=== PATIENT | female | born 1955 | race African-American/Black ===

== ENCOUNTER 2018-12-03 16:47 | Inpatient (IN) | payer BC ==
[~2018-12-03] VITALS: Ht 157.5 cm; Wt 82.1 kg
--- NOTE | ~2018-12-03 | HC ---
[facility] [place] [address] CONSULTATION Name: HARJEET HENSON Room #: 355-P ADM IN M.R.#: [id number] Admission: 12/03/18 Attend Phys: Shelton Martin MD Discharge: Date of : 53 Report #: [id number] THIS REPORT FOR: //name// CC: Shelton Martin [facility] unknown Time 2:21 p.m. HISTORY OF PRESENT ILLNESS: The patient is a 63-year-old -[place] woman who was admitted to the hospital with stroke-like findings. The patient has a history of diabetes and hypertension. She has not been taking her medications. She noted when she went to work yesterday some slurred speech as well as weakness in her right arm and right leg. She herself believes that the weakness of the right leg began on Tuesday. The patient had a blood pressure of 214/101 in the Emergency Room and her blood sugar was over 400. An initial CAT scan of the head was negative. The patient was admitted. PAST MEDICAL HISTORY: Positive for hypertension and diabetes. The patient has had decreased vision in her left eye. She has had Lasik eye surgery. MEDICATIONS: Her prescribed medications were metformin, hydrochlorothiazide and lisinopril. She was not taking any of these. ALLERGIES: No allergies known. FAMILY HISTORY: Positive for stroke in her mother. She does not know about her father. SOCIAL HISTORY: She does not smoke. 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 She does not use drugs or alcohol. She is under a lot of stress at home with an extended family. REVIEW OF SYSTEMS: Negative for systemic complaints of fever, night sweats, chills, rashes or lymphadenopathy. She denied chest pain or shortness of breath, cough, nausea or vomiting. She did have urinary urgency in the day or two before she came to the Emergency Room. PHYSICAL EXAMINATION: VITAL SIGNS: Initial blood pressure in the Emergency Room was 214/101. Blood pressure at this time is 188/102, pulse 66, temperature 36.4. GENERAL: The patient is a well-developed, well-nourished patient, in no apparent distress, who is pleasant and cooperative. NECK: Supple. EXTREMITIES: There is no pedal edema. NEUROLOGIC: She is alert and oriented. Speech is slightly slurred, but easily understandable. She is oriented with normal memory. On cranial nerve testing, the acuity in the left eye is decreased. Pupils are equally round and reactive. [facility] [address] [place] [address] CONSULTATION Name: HARJEET HENSON Room #: 355-P [facility] IN .R.#: [id number] Admission: 12/03/18 Attend Phys: Shelton Martin MD Discharge: Date of : 53 Report #: [id number] Extraocular movements are full. Facial sensation shows a slightly decreased appreciation to pin on the right face. There is mild weakness of the right mouth. Eyelid closure is slightly weaker on the right. Tongue is normal. Motor testing reveals full power in her arms and legs. Sensation testing revealed diminished appreciation to pin on the right in the arm and leg. Vibration was decreased bilaterally. Coordination testing was done well with [id number]. Reflexes were absent throughout. Toes were downgoing. Gait was mildly ataxic. The patient could heel walk and toe walk well; however, she did have some weaving with her eyes closed and her feet together. MRI scan of the brain showed an acute infarct in the left caroline. The MRI shows multiple areas of gradient echo appearance suggesting the presence of hemosiderin from previous small hemorrhages suggestive of amyloid angiopathy. MRA showed evidence of stenosis on the right with involvement of the anterior cerebral artery and the middle cerebral artery. In the neck, no hemodynamically significant stenosis was noted. ASSESSMENT AND PLAN: Diabetic, hypertensive woman with changes in the brain consistent with intracerebral occlusive disease and evidence of previous multiple tiny hemorrhages, now with the appearance of a left pontine infarct. She is currently on atorvastatin and aspirin. She is on lisinopril and hydrochlorothiazide. She is being covered with an insulin drip. By: 1432 [id number] Bishop Naranjo MD /nt
--- NOTE | ~2018-12-03 | HC ---
[facility] [place] [address] CONSULTATION Name: HARJEET HENSON Room #: 355-P ADM IN M.R.#: [id number] Admission: 12/03/18 Attend Phys: Shelton Martin MD Discharge: Date of : 53 Report #: [id number] THIS REPORT FOR: //name// CC: Shelton Martin [facility] unknown DATE OF SERVICE: 12/04/2018 HISTORY OF PRESENT ILLNESS: The patient is a 63-year-old -Micronesian female with history of diabetes mellitus, hypertension, admitted with lower extremity weakness, slurred speech. She has some right lower extremity ataxia. She was significantly hypertensive, blood pressure 214/101. She feels that she is overall doing better currently. MRI does reveal a left paramidline region of the caroline acute infarct. Denies any specific problems with swallowing. She noted right leg drag and weakness, which she thinks has improved, but not back to normal. We are seeing her in Rehabilitation Medicine consultation. PAST MEDICAL HISTORY: As noted above. She has history of diabetes mellitus and hypertension. She has had prior and LASIK surgery. MEDICATIONS: Please see the full medication listing. She apparently had ran out of her blood pressure and diabetes medications. ALLERGIES: No known drug allergies. FAMILY HISTORY: Her mother had had a stroke. SOCIAL HISTORY: She lives in a house alone several steps in with several floors, but she notes the steps to have railings on them. There is a friend that is visiting and notes the patient could stay with a friend in her house if need be. REVIEW OF SYSTEMS: Did not offer any current complaints of chest pain, shortness of breath or abdominal discomfort. PHYSICAL EXAMINATION: GENERAL: A 63-year-old -Micronesian female, in no obvious distress. She is alert, pleasant. VITAL SIGNS: Last recorded temperature 97.5, pulse 66, respirations 20, blood pressure 188/102. HEENT: Appeared to be benign. No obvious visual field neglect to confrontation. NEUROLOGIC: She was able to follow basic commands without difficulty. EXTREMITIES: Functional range of motion of both upper extremities. Strength is at least a grade 4 to 4-/5. DTRs are trace to 1. Lower extremities, no focal calf swelling, functional range of motion, strength is a grade 4 to 4-/5. DTRs [address] [address] CONSULTATION Name: HARJEET HENSON Room #: 355-P [facility] IN M.R.#: [id number] Admission: 12/03/18 Attend Phys: Shelton Martin MD Discharge: Date of : 53 Report #: [id number] are trace to 1. No obvious sensory neglect and sensation appeared to be intact to simultaneous stimulation. ASSESSMENT: A 63-year-old -Micronesian female with the following problem list: 1. Left paramidline pontine acute infarct. 2. Right lower extremity ataxia. 3. Initial dysarthria. 4. Functional mobility and activities of daily living and communication concerns. 5. Diabetes mellitus. 6. Hypertension. PLAN: Therapy evaluations are underway. We will be glad to follow along with you regarding rehab therapy needs. By: 1205 0112 Mauricio Guzman MD /PMT
[~2018-12-03 16:47] MED LIST: GLUCOPHAGE500 MG PO; HYDROCHLOROTH12.5 MG PO; LISINOPRIL2.5 MG PO; NORCO 5-325 TA1 EACH PO; [UNRECOGNIZED DRUG - REMARK] OPHTHALMIC
--- NOTE | 2018-12-03 16:47 | NUR ---
PT TO ED #12, REPORT TO KHADIJAH AND DR YOUNG AT BEDSIDE
[2018-12-03 17:03] VITALS: BP 214/101
[2018-12-03 17:04] LABS: HEMOGLOBIN 12.9 gm/dL (12.0-15.0); MCH 27.6 pg (26.0-34.0); MCHC 32.9 g/dL (28.0-37.0); MCV 83.9 fL (80.0-100.0); RBC 4.65 mil/uL (4.20-5.00); RDW 14.2 % (10.5-14.5); WBC 6.5 thou/uL (4.0-11.0)
[2018-12-03 17:12] LABS: ANION GAP 6 mmol/L (7-16); BUN 23 mg/dL (7-18); CALCIUM 9.4 mg/dL (8.5-10.1); CHLORIDE 97 mmol/L (98-107); CO2 32 mmol/L (21-32); CREATININE 1.3 mg/dL (0.6-1.0); GLUCOSE 448 mg/dL (74-106); POTASSIUM 3.4 mmol/L (3.5-5.1); SODIUM 135 mmol/L (136-145)
[2018-12-03 17:19] LABS: APTT 25.2 Seconds (24.5-32.8); PROTIME 10.2 Seconds (9.3-11.4)
[2018-12-03 17:20] LABS: TROPONIN-I <0.06 ng/mL (<0.06)
--- NOTE | 2018-12-03 17:34 | NUR ---
PT HAD TAKEN 324MG OF ASPIRIN PRIOR TO ARIVAL
[2018-12-03 18:07] VITALS: BP 177/88
[2018-12-03 18:45] VITALS: BP 226/111
[2018-12-03 19:10] VITALS: BP 212/114
--- NOTE | 2018-12-03 19:15 | NUR ---
report received from assembler musical instruments Nicolás @ 0997. pt being seen by dr. neil in er at this time. pt recieved to floor @ 1900 via stretcher w/ pt's sister at her side. pt aox4. vs taken. pt settled into room 355. Nicolás rn stated he got a 4 on the NIH assessment. Nicolás doss also states that the pt "ran out of her blood pressure and diabetic medication several months ago".
--- NOTE | 2018-12-03 21:48 | NUR ---
ADMISSION NOTE: ARRIVED AT SHIFT CHANGE 1900. PT ALERT AND ORIENTED X4. INSTRUCTED TO CALL FOR ASSIST OUT OF BED. DENIES PAIN. BLOOD PRESSURE ELEVATED, DENIES HEADACHE. SPEECH IS CLEAR AT THIS TIME. ORIENTED TO ROOM AND SURROUNDINGS.
[2018-12-03 22:09] VITALS: BP 193/107
--- NOTE | 2018-12-04 02:11 | NUR ---
stress incontinence this am. she is awake and washing out her pants. denies pain. nih continues to be a 2. no concerns voiced. awaiting neurology consult this am.
[2018-12-04 05:20] VITALS: BP 230/105
[2018-12-04 05:25] LABS: HEMATOCRIT 36.5 % (37.0-47.0); HEMOGLOBIN 11.7 gm/dL (12.0-15.0); MCHC 31.9 g/dL (28.0-37.0); MCV 84.6 fL (80.0-100.0); RBC 4.32 mil/uL (4.20-5.00); RDW 14.5 % (10.5-14.5); WBC 5.3 thou/uL (4.0-11.0)
[2018-12-04 05:32] LABS: URINE CREATININE-RANDOM* 50.9 mg/dL
[2018-12-04 05:37] LABS: URINE BILIRUBIN NEGATIVE (Negative); URINE BLOOD NEGATIVE (Negative); URINE CLARITY CLEAR; URINE COLOR YELLOW; URINE GLUCOSE-RANDOM* 3+ (Negative); URINE KETONES NEGATIVE (Negative); URINE LEUKOCYTES NEGATIVE (Negative); URINE NITRITE NEGATIVE (Negative); URINE PROTEIN (DIPSTICK) TRACE (Negative); URINE SPECIFIC GRAVITY 1.015 (1.005-1.035); URINE UROBILINOGEN 0.2 E.U./dl (0.2-1.0)
[2018-12-04 05:43] LABS: ALBUMIN 2.9 g/dL (3.4-5.0); ANION GAP 9 mmol/L (7-16); BUN 20 mg/dL (7-18); CALCIUM 9.5 mg/dL (8.5-10.1); CHLORIDE 103 mmol/L (98-107); CHOLESTEROL 203 mg/dL (<200); CO2 30 mmol/L (21-32); CREATININE 0.9 mg/dL (0.6-1.0); GLUCOSE 240 mg/dL (74-106); HDL CHOLESTEROL 51 mg/dL (>40); LDL CHOLESTEROL 137 mg/dL (<100); POTASSIUM 3.3 mmol/L (3.5-5.1); SGOT 17 U/L (15-37); SGPT 23 U/L (30-65); SODIUM 142 mmol/L (136-145); TOTAL BILIRUBIN 0.4 mg/dL (<0.1-1.0); TOTAL PROTEIN 7.1 g/dL (6.4-8.2); TRIGLYCERIDE 75 mg/dL (<150); VLDL 15 mg/dL (<40)
[2018-12-04 05:45] LABS: SERUM ASSESSMENT Clear
[2018-12-04 08:07] VITALS: BP 199/105
--- NOTE | 2018-12-04 08:50 | EKG ---
[place] [address] [facility] [place] [address] ELECTROCARDIOGRAM REPORT Name: HARJEET HENSON Room #: 355-P ADM IN M.R.#: [id number] Admission: 12/03/18 Attend Phys: Shelton Martin MD Discharge: Date of : 53 Report #: [id number] THIS REPORT FOR: //name// [facility] ED Test Date: 2018-12-03 Test Time: 17:23:10 Pat Name: HARJEET HENSON Department: Room: [facility] Gender: F Product Support Rep: : 1955 Requested By: Hernandez Daugherty Order Number: [id number] MD: Efrain Guallpa Measurements Intervals [place] Rate: 75 P: 10 CO: 168 QRS: -28 QRSD: 98 T: 80 QT: 404 QTc: 452 Interpretive Statements Sinus rhythm Nonspecific T wave abnormality LVH with secondary repolarization abnormality No previous ECG available for comparison Electronically Signed On 12-04-2018 8:50:41 KETTLE SKIMMER by Efrain Guallpa [email or web address] <ELECTRONICALLY SIGNED> By: Efrain Guallpa MD, [facility] 12/04/18 0850 22 22 Efrain Guallpa MD, FAC /EPI
[2018-12-04 11:27] VITALS: BP 188/102
[2018-12-04 16:51] VITALS: BP 215/106
[2018-12-04 19:05] VITALS: BP 172/91
--- NOTE | 2018-12-04 19:50 | NUR ---
care of pt assumed this am @ ~0700. pt noted to be getting up on her own and under the impression she can be up ad wild. pt informed of the need for her to be up w/ x1 sba when [facility], in room or hallways and the need to have a chair and bed alarms on when in those places. pt has been non-compliant with our request for her to call us when up, but has been found setting of the bed alarm as she is going to the bthr to void and not calling and/or waiting on staff to assist. pt has denies co chest pain, no soa and no n/v/d. pt w/ a good appetite for food and fluids today. pt visited by her female friend late this am. pt had mri & mra this am. pt looking forward to a good restful sleep tonight.
[2018-12-05] VITALS (9 sets, daily range): BP systolic 115–184; BP diastolic 57–110
[2018-12-05 02:10] LABS: ESTIMATED AVERAGE GLUCOSE > 398 mg/dL (()); GLYCOHEMOGLOBIN (HGB A1C) > 15.5 % (4.8-5.6)
--- NOTE | 2018-12-05 04:03 | NUR ---
No change in neuro assessment. Speech slightly slurred but understandable. No weakness noted. C/o shoulder soreness due to shot received yesterday ( flu shot and insulin shot per pt.). ELECTROENCEPHALOGRAPH TECHNOLOGIST notified and order received. Tylenol given with some relief. Pt. slept fair during the night. No other concerns voiced at this time. Will continue to monitor.
--- NOTE | 2018-12-05 10:04 | 2DMMODE ---
[facility] [address] [place] [address] 2 D/M-MODE ECHOCARDIOGRAM Name: HARJEET HENSON Room #: 355-P ADM IN M.R.#: [id number] Admission: 12/03/18 Attend Phys: Shelton Martin, Discharge: Date of : 53 Date of Service: 12/05/18 1004 Report #: [id number] THIS REPORT FOR: //name// APPROVED REPORT Study performed: 12/05/2018 08:12:20 EXAM: Comprehensive 2D, Doppler, and color-flow Echocardiogram Patient Location: Echo lab Status: routine BSA: 1.83 HR: 59 bpm BP: 171/89 mmHg Rhythm: NSR Other Information Study Quality: Good Indications CVA/TIA Diabetes Bradycardia Hypertension/HDD 2D Dimensions RVDd: 27.86 mm IVSd: 16.74 (7-11mm) LVOT Diam: 20.68 (18-24mm) LVDd: 16.74 mm PWd: 15.66 (7-11mm) Ascending Ao: 37.40 (22-36mm) LVDs: 38.33 (25-40mm) Aortic Root: 35.87 mm Volumes Left Atrial Volume (Systole) Single Plane 4CH: 63.93 mL Single Plane 2CH: 56.46 mL LA ESV Index: 36.12 mL/m2 Aortic Valve AoV Peak Rashad.: 1.50 m/s AO Peak Gr.: 8.99 mmHg LVOT Max P.84 mmHg LVOT Max V: 1.21 m/s MARE Vmax: 2.71 cm2 Mitral Valve E/A Ratio: 0.4 [facility] [address] [place] [address] 2 D/M-MODE ECHOCARDIOGRAM Name: HARJEET HENSON Room #: 355-P [facility] IN [facility]#: [id number] Admission: 12/03/18 Attend Phys: Shelton Martin, Discharge: Date of : 53 Date of Service: 12/05/18 1004 Report #: [id number] MV Decel. Time: 278.43 ms MV E Max Rashad.: 0.43 m/s MV A Rashad.: 1.22 m/s MV PHT: 80.74 ms IVRT: 203.00 ms Pulmonary Valve PV Peak Rashad.: 0.98 m/s PV Peak Gr.: 3.89 mmHg Tricuspid Valve RAP Estimate: 5.00 mmHg Left Ventricle The left ventricle is normal size. Mild concentric left ventricular hypertrophy. Left ventricular systolic function is mildly decreased. Hypokinesis inferoseptum and base of inferior vasquez LVEF is 45%. Mild diastolic dysfunction is present (impaired relaxation pattern). Right Ventricle The right ventricle is normal size. The right ventricular systolic function is normal. Atria Left atrium is mildly dilated. No shunting by contrast bubble injection. The right atrium size is normal. Aortic Valve Aortic valve is calcified. No aortic regurgitation is present. There is no aortic valvular stenosis. Mitral Valve The mitral valve is normal in structure. Trace to mild mitral regurgitation. No evidence of mitral valve stenosis. Tricuspid Valve The tricuspid valve is normal in structure. Trace tricuspid regurgitation. Unable to assess PA pressure. Pulmonic Valve [facility] [address] [place] [address] 2 D/M-MODE ECHOCARDIOGRAM Name: HARJEET HENSON Room #: 355-P [facility] IN M.R.#: [id number] Admission: 12/03/18 Attend Phys: Shelton Martin, Discharge: Date of : 53 Date of Service: 12/05/18 1004 Report #: [id number] The pulmonary valve is normal in structure. Mild pulmonic regurgitation. Great Vessels The aortic root is normal in size. The ascending aorta is borderline dilated at 3.7 cm. IVC is normal in size and collapses >50% with inspiration. Pericardium There is no pericardial effusion. <Conclusion> Left ventricular systolic function is mildly decreased. Hypokinesis inferoseptum and base of inferior vasquez LVEF is 45%. Mild LVH Mild diastolic dysfunction is present (impaired relaxation pattern). No shunting by contrast bubble injection. Left atrium is mildly dilated. Aortic valve is calcified. No aortic regurgitation or insufficiency. The mitral valve is normal in structure. Trace to mild mitral regurgitation Pulmonary artery pressure could not be reliably ascertained. There is no pericardial effusion. <ELECTRONICALLY SIGNED> By: Efrain Guallpa MD, FACC 12/05/18 1004 100 100 Efrain Guallpa MD, FAC /INF
--- NOTE | 2018-12-05 10:21 | NUR ---
ASSESSMENT: CM REVIEWED CHART AND MET WITH PATIENT AT THE BEDSIDE. PT IS ALERT AND ORIENTED X4. PT REPORTS SHE LIVES IN A HOUSE ALONE BUT STATES HER NEICE IS TEMPORARILY LIVING WITH HER. PT REPORTS SHE CAN ENTER HER HOME THROUGH THE FRONT DOOR WHERE THERE IS A COUPLE OF STEPS OR REPORTS SHE CAN ENTER THROUGHT THE GARAGE AND GO UP 4-5 STEPS WITH HANDRAILS TO THE MAIN LEVEL AND ANOTHER 4-5 STEPS WITH HANDRAILS TO THE LEVEL WITH BEDROOMS. PT REPORTS SHE AMBULATES INDEPENDENTLY AND IS INDEPENDENT WITH ADLS. PT REPORTS SHE HAS NOT HAD HH IN THE PAST NOR BEEN TO REHAB/SNF. CM DISCUSSED ROLE. 5N IS FOLLOWING PATIENT. PATIENT STATING SHE IS HOPING SHE IS ABLE TO RETURN TO HER HOME WITH HH IF NEEDED. PATIENT HAS NO PREFERENCE OF HH. REFERRAL SENT TO [facility]. CM WILL CONTINUE TO FOLLOW TO ASSIST NEEDED.
--- NOTE | 2018-12-05 15:29 | NUR ---
Assumed care of patient at 0700. Blood pressures elevated this shift. BP meds being adjusted by both Dr. Clements and Dr. Guallpa. Otherwise, VSS. Patient alert and oriented x4, very pleasant. NIH q 4 hours - score of 3 due to right sided facial droop, slurred speech and very slight drift to right arm. Good, equal store grocery merchandiser strengths. Patient does not feel that right side is weaker than left, but it feels "stiff" and not as coordinated. Patient seems very motivated about completing therapies and doing things herself to increase her strength. Up with SBA and gait belt - right knee becky at times when walking. Fall precautions in place but patient does not always wait to get up until staff arrives. Continue to encourage patient to call and use fall precautions. Looking into 5N rehab stay for patient. Had Echo today; abnormal results so cardiology consult. Family at bedside this afternoon. Patient with some questions regarding FMLA paperwork and when she will be able to return to work, what her restrictions will be. Encouraged to speak with Dr. Clements and neurologist. Progressing towards POC. Will continue to monitor.
--- NOTE | 2018-12-05 19:36 | NUR ---
Around 1809, patient called out to use the restroom. Taken to bathroom by SALESPERSON BURIAL NEEDS on unit. Patient told to call out when done and staff will walk back with patient. About 10-15 minutes later, SALESPERSON BURIAL NEEDS asked this RN to go check on patient, since she hadn't called. Patient was found in the bed, at the end of the bed, curled up on side, talking on the phone. Asked patient if she wanted to get repositioned, since she appeared uncomfortable. Patient states yes, hung up phone and stated that "whatever medicine you gave me is working because I feel good. I feel like I'm floating right now. I kind of feel like I'm high ." Noted that speech sounds more slurred / slower than during the day. When patient repositioning in bed, she appears to be moving slower than her baseline and also appears "floppy" when moving. Patient does state that she feels she can use her right hand better currently. Vitals taken at this time - BP remains high. Otherwise, stable. Blood sugar taken - 138. Dr Clements paged to notify of change. No immediate callback, so Code Stroke called. NIH completed and charted - score of 4. No other new changes or symptoms besides the speech and patient feeling different. No new right sided weakness or left sided weakness. Continues with equal pharmacy data analyst strengths. Oriented x4. Still with slight right facial droop, maybe more prominent slurred speech. Another page to Dr. Clements and with call back. Updated on patient status and symptoms. To call neurology. At this point, patient states she feels back to baseline. Is acting more like baseline - does not feel "high or floating anymore," but speech is still somewhat more slurred / slow than compared to previous. Dr. Naranjo paged and called back. Updated on patient status and symptoms. Also informed of increase in blood pressure medications, new BP medications, restarting home meds and Metformin. No need for CT scan or MRI at this time. Dr. Naranjo feels this is related to new and increased BP meds and that patient's blood pressure is sensitive to medications. Wants to allow for permissive HTN at this time. To hold Amlodipine and Lisinopril. Decrease Coreg dose to 6.25 mg PO BID. Continue to closely monitor overnight and call back with any other patient changes. Updated patient and oncoming shift.
[2018-12-06 02:45] VITALS: BP 169/93
--- NOTE | 2018-12-06 04:49 | NUR ---
No change in neuro status. NIH still at 3. Mild slurred speech , understandable and at times it's clear. Bed alarm on for safety. Denies any pain. Will continue to monitor.
[2018-12-06 08:09] VITALS: BP 188/108
--- NOTE | 2018-12-06 08:15 | EKG ---
[address] [place] [address] ELECTROCARDIOGRAM REPORT Name: HARJEET HENSON Room #: 355- ADM IN M.R.#: [id number] Admission: 12/03/18 Attend Phys: Shelton Martin MD Discharge: Date of : 53 Report #: [id number] THIS REPORT FOR: //name// [facility] Test Date: 2018-12-05 Test Time: 13:28:53 Pat Name: HARJEET HENSON Department: Room: 355 Gender: F Nutrition Club Ambassador: Joe HU : 1955 Requested By: Efrain Guallpa Order Number: [id number] MD: Efrain Guallpa Measurements Intervals [place] Rate: 71 P: 30 LA: 170 QRS: -25 QRSD: 94 T: 79 QT: 416 QTc: 453 Interpretive Statements Sinus rhythm Poor R wave progression Left ventricular hypertrophy Nonspecific T wave abnormality Compared to ECG 12/03/2018 17:23:10 No significant change was found Electronically Signed On 12-06-2018 8:15:22 CAMERA REPAIRER by Efrain Guallpa [email or web address] <ELECTRONICALLY SIGNED> By: Efrain Guallpa MD, [facility] 12/06/18 0815 1328 1328 Efrain Guallpa MD, [facility] /EPI
--- NOTE | 2018-12-06 08:39 | EKG ---
[address] [place] [address] ELECTROCARDIOGRAM REPORT Name: HARJEET HENSON Room #: 355- ADM IN M.R.#: [id number] Admission: 12/03/18 Attend Phys: Shelton Martin MD Discharge: Date of : 53 Report #: [id number] THIS REPORT FOR: //name// [facility] Test Date: 2018-12-06 Test Time: 07:40:24 Pat Name: HARJEET HENSON Department: Room: 355 Gender: F Web Site Admin: JOE : 1955 Requested By: Efrain Guallpa Order Number: [id number] MD: Efrain Guallpa Measurements Intervals [place] Rate: 62 P: 33 ME: 165 QRS: -20 QRSD: 100 T: 84 QT: 465 QTc: 473 Interpretive Statements Sinus rhythm Probable left atrial enlargement Left ventricular hypertrophy Anterior Q waves, possibly due to LVH Compared to ECG 12/03/2018 17:23:10 No significant change was found Electronically Signed On 12-06-2018 8:39:39 WOOD BOATBUILDER by Efrain Guallpa [email or web address] <ELECTRONICALLY SIGNED> By: Efrain Guallpa MD, [facility] 12/06/18 0839 0740 Efrain Guallpa MD, [facility] /EPI
--- NOTE | 2018-12-06 09:41 | H ---
[facility] [place] [address] HISTORY AND PHYSICAL Name: HARJEET HENSON Room #: 355-P ADM IN M.R.#: [id number] Admission: 12/03/18 Attend Phys: Shelton Martin MD Discharge: Date of : 53 Report #: [id number] THIS REPORT FOR: //name// CC: Shelton Martin [facility] unknown DATE OF SERVICE: 12/03/2018 REASON FOR ADMISSION: Lower extremity weakness and slurred speech. HISTORY OF PRESENT ILLNESS: A 63-year-old with diabetes mellitus and hypertension, both out of control. Unfortunately, she has not been taking her medications. She got into an argument with her niece on Tuesday. Tuesday, she started to have some frequent urination and weakness on the right lower extremity. She went to her job today and her friend noticed that she has been having some slurred speech. Her friend also reported that her mouth has been deviated to the right side. The patient denies any awareness of those symptoms, but she did notice that she has been ataxic with right lower extremity weakness that started on Tuesday. She also noticed her speech is not the usual pattern. She denies any headache. No fever or chills. No chest pain. No numbness in any part of her body. No upper extremity weakness or numbness. No previous similar episodes. Her friend gave her a couple of tablets of aspirin and brought her to the Emergency Room. She was found to have an extremely elevated blood pressure at 214/101. CT of the head was negative for any acute stroke; however, she did have chronic white matter microvascular ischemic changes. PAST MEDICAL HISTORY: 1. Hypertension, diabetes mellitus. Apparently both are out of control. 2. Lipoma surgery. 3. section. 4. LASIK eye surgery. MEDICATIONS: 1. Metformin. 2. Hydrochlorothiazide. 3. Lisinopril. ALLERGIES: None. FAMILY HISTORY: Her mom had a stroke. SOCIAL HISTORY: She does not smoke. No drug or alcohol abuse. 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 REVIEW OF SYSTEMS: GENERAL: No fever or chills. [facility] [address] [place] [address] HISTORY AND PHYSICAL Name: HARJEET HENSON Room #: 355-P ADM IN .R.#: [id number] Admission: 12/03/18 Attend Phys: Shelton Martin MD Discharge: Date of : 53 Report #: [id number] CARDIOVASCULAR: No chest pain or palpitation. PULMONARY: No cough or hemoptysis. GASTROINTESTINAL: No nausea or vomiting. GENITOURINARY: No frequency, no urgency. NEUROLOGIC: As per history of present illness. PHYSICAL EXAMINATION: NEUROLOGIC: Alert, oriented, in no apparent distress. No gross cranial nerve deficits. VITAL SIGNS: Blood pressure is 177/88. Temperature 36.8. HEAD AND NECK: No jugular venous distention, no bruit, no thyromegaly. CHEST: Decreased air entry bilaterally. CARDIOVASCULAR: No rubs detected. ABDOMEN: Soft, nontender. No hepatosplenomegaly. LOWER EXTREMITIES: No edema. LABORATORY DATA: Reviewed. White blood cell count 6.5. Sodium 135, potassium 3.4, BUN is 23, creatinine is 1.3, blood sugar is extremely elevated at 448. Chest x-ray: Reviewed, no acute abnormality. Head CT: Just chronic changes. ASSESSMENT, IMPRESSION, PLAN: 1. Stroke-like symptoms. 2. Uncontrolled blood pressure. 3. Uncontrolled diabetes mellitus. 4. Hyperlipidemia. 5. Admission. 6. Gentle reduction of her blood pressure with resumption of her medications. 7. Avoid p.r.n. medications. 8. Blood sugar control. 9. Aspirin was given in the Emergency Room. We will resume daily aspirin. 10. MRI of the brain. 11. Neurological consultation. 12. Risk factor modifications with cholesterol panel, TSH. 13. Counseling about her blood pressure and blood sugar control. 14. Check hemoglobin A1c. 15. Low salt diet. 16. Chronic kidney disease, probably related [place] [address] HISTORY AND PHYSICAL Name: HARJEET HENSON Room #: 355-P [facility] IN M.R.#: [id number] Admission: 12/03/18 Attend Phys: Shelton Martin MD Discharge: Date of : 53 Report #: [id number] and hypertension. We will investigate. 17. Replace potassium. <ELECTRONICALLY SIGNED> By: Shelton Martin MD 12/06/18 0941 [id number] 10 Shelton Martin MD /nt
[2018-12-06 12:06] VITALS: BP 120/98
--- NOTE | 2018-12-06 16:19 | NUR ---
ON-GOING ASSESSMENT: PT/OT SAW PATIENT TODAY AND FEELING SHE WOULD BENEFIT FROM REHAB. CM NOTIFIED LIASON AT 5N TO RE-LOOK AT PATIENT AND REHAB PHYSICIAN MET WITH PATIENT AND FEEL SHE IS A GOOD CANIDATE. 5N [facility] STATING THEY ARE SUBMITTING FOR AUTH.
[2018-12-06 19:46] VITALS: BP 149/88
[2018-12-07 00:06] VITALS: BP 166/85
[2018-12-07 03:41] VITALS: BP 148/85
--- NOTE | 2018-12-07 04:15 | NUR ---
PT RESTED GOOD, SPONGE BATH THIS MORNING WITH MINIMAL ASSIST, PT VERY DETERMINED TO DO THINGS ON HER OWN, STILL WITH UNBALANCED GAIT, DYSARTHIA, BUT ABLE TO VERBALIZED NEEDS, DENIES PAIN, NOTED CONSTANTLY MOVING ARMS AND LEGS AND DOING ROM EXERCISE, CONTINENT OF B/B, NO BM PASSED, ON TELE, NSR. SB. BED ALARM ON, ABLE TO REPOSITION SELF IN BED, ABLE TO BRUSH TEETH, VSS, DENIES HEADACHE NOR SOB, TOLERATING THIN LIQUIDS, HOURLY ROUNDING, MONITORED.
[2018-12-07 07:39] VITALS: BP 196/100
[2018-12-07 08:25] VITALS: BP 196/100
--- NOTE | 2018-12-07 10:28 | NUR ---
[facility] AUTHORIZED ACUTE REHAB ADMISSION FOR TODAY. MESSAGE SENT TO BLANCA YANG CM, AND NOTIFIED REHAB SUPERINTENDENT JOB JETT PALACIOS.
[2018-12-07] MEDS ORDERED: GLUCOPHAGE1000 MG PO (12:17)
[2018-12-07] MEDS ORDERED: PEPCID20 MG PO (12:17)
[2018-12-07] MEDS ORDERED: ATORVASTATIN CA40 MG PO (12:17)
[2018-12-07] MEDS ORDERED: ASPIRIN325 PO (12:17)
[2018-12-07] MEDS ORDERED: COREG6.25 MG PO (12:17)
--- NOTE | 2018-12-07 15:31 | NUR ---
Assumed care of patient at 0700. Blood pressure hypertensive, but allowing for permissive HTN per neurology. Otherwise, VSS. Patient is alert and oriented x4, but with noticeable right sided facial droop and slurred speech. Patient with right sided weakness, both arm and leg. Arm and left drift. Moderate strength. Uncoordinated movements. Very ataxic gait. NIH as charted. Fall precautions in place, up with moderate assist x1, gait belt and walker. Neurology rounded and this RN at bedside during neuro assessment. Discussed in detail with neurology, and must closely monitor her blood pressures, as it appears patient's symptoms worsen when BP is too low. Okay to transfer off floor for 5N rehab. Discharge orders received. Belongings gathered. IV and telemetry discontinued. Report called to Sister Ashleigh on 5N. Transported to room 506 via wheelchair.
--- NOTE | 2018-12-07 15:55 | NUR ---
ON-GOING ASSESSMENT: 5N SUBMITTED FOR INSURANCE AUTH AND AMY SPOKE WITH LIASON FROM 5N WHO STATES THEY HAVE AUTH TO ACCEPT PATIENT TODAY. CM NOTIFIED PATIENT. PT STATING HER FAMILY IS BRINGING IN HER MAIL WITH HER FMAL PAPERWORK AND DISCUSSED WITH ATTENDING TO POSSIBLY FILL OUT FOR HER BUT WILL NOT HAVE IT UNTIL TONIGHT. CM DISCUSSED CM WILL PASS ON TO CM ON 5N TO PASS ON TO ATTENDING TO COMPELTE FOR PATIENT IF THEY ARE WILLING TO DO SO. BEDSIDE RN HAS THE NUMBER FOR REPORT FOR 5 N.
== END 2018-12-07 14:48 | DRG 64 ==
LOC: ER 16:47 → 3W 18:03 → EROBS 18:03 → 3W 18:47
PROVIDERS: Emergency Medicine; ADMIT Hospitalist
DX: I63.9 Cerebral infarction, unspecified (principal); N17.0 Acute kidney failure with tubular necrosis; I42.9 Cardiomyopathy, unspecified; I10 Essential (primary) hypertension; I66.19 Occlusion and stenosis of unspecified anterior cerebral artery; R47.1 Dysarthria and anarthria; I66.09 Occlusion and stenosis of unspecified middle cerebral artery; E78.5 Hyperlipidemia, unspecified; E11.65 Type 2 diabetes mellitus with hyperglycemia; Z79.82 Long term (current) use of aspirin; Z79.899 Other long term (current) drug therapy; Z90.710 Acquired absence of both cervix and uterus; Z82.3 Family history of stroke; Z83.3 Family history of diabetes mellitus; Z91.19 Patient's noncompliance with other medical treatment and regimen; Z23 Encounter for immunization
CPT/HCPCS: 10879

== ENCOUNTER 2018-12-07 12:13 | Inpatient (IN) | payer BC ==
[~2018-12-07] VITALS: Ht 157.5 cm; Wt 85.7 kg
[2018-12-07] MEDS ORDERED: ASPIRIN325 PO (12:17)
[2018-12-07] MEDS ORDERED: PEPCID20 MG PO (12:17)
[2018-12-07] MEDS ORDERED: COREG6.25 MG PO (12:17)
[2018-12-07] MEDS ORDERED: ATORVASTATIN CA40 MG PO (12:17)
[2018-12-07] MEDS ORDERED: GLUCOPHAGE1000 MG PO (12:17)
[2018-12-07 16:00] VITALS: BP 171/90
--- NOTE | 2018-12-07 17:48 | NUR ---
PT ADMITTED FROM 3W TO ROOM 506 FOR L [facility] ACUTE INFARCT. PT ALERT AND ORIENTED X4, ABLE TO VOICE HER NEEDS. HAS SLURRED SPEECH. RIGHT FACIAL WEAKNESS, RIGHT ARM WEAK AND RIGHT LEG SIDE WEAKNESS, HER GAIT IS VERY ATAXIC. UP WITH MAX ASSIST WITH A WALKER. REASSESSMENT PER CHART. LUNG SOUNDS CLEAR DIMINISHED. ABD BS PRESENT. LAST BM WAS 2 DAYS AGO. DENIES CONSTIPATION. ABLE TO MANAGE HER OWN TRAY. PT SAID SHE TRY TO DO BY HERSELF MUCH SHE CAN. HER GOAL IS TO GET BETTER AND ABLE TO TAKE CARE HERSELF. OFFERED SUPPORTIVE CARE. ORIENTED TO THE UNIT AND WENT BRIEFLY ABOUT REHAB SCHEDULE. ENCOURAGED PT TO VOICE HER NEEDS FOR PAIN, SLEEP AND N/V. DENIES PAIN. SAT 100% ON RA. C/O NAUSEA. CALLED AND OBTAINT PRN ZOFRAN. ZOFRAN GIVEN. PHYSICAN CONSULTS CALLED. DR. DAY SAID PT CAN HAVE REGULAR HTN AND GIVE NORVASC 5MG IF B/P SYSTOLIC ABOVE 170 AND DIALYSIS ABOVE 100 NEED. PT IS EATING DINNER NOW. FALL PRECAUTION IN PLACE. CALL LIGHT WITHIN REACH. CHAIR ALARM IS ON. WILL GIVE REPORT TO NIGHT NURSE TO CONTINUE TO MONITOR. MAXIMO SANTIZO SAID SHE WILL COME TO LOOK OVER HER MEDS IN THE MORNING AND CALL IF PT NEEDS ANY THING FOR TONIGHT.
[2018-12-07 19:54] VITALS: BP 162/83
[2018-12-07 20:30] VITALS: BP 162/83
[2018-12-07 20:55] VITALS: BP 208/90
[2018-12-07 22:30] VITALS: BP 180/78
--- NOTE | 2018-12-07 23:40 | NUR ---
PATIENTS CARES WERE ASSUMED AT SHIFT CHANGE. WAS TOLD ON REPORT THAT PATIENT GOT TO THE UNITE AT 1630. AT THAT TIME PATIENTS BLOOD PRESSURE WAS 171/90. THIS WAS QUESTIONED TO WHAT TREATMENT WAS GIVEN FOR THIS BLOOD PRESSURE BEING HIGH. WAS TOLD THE NEURO DOCTOR WANTS IT HIGH. PATIENT FEELS BEAD WHEN IT IS LOW OR CLOSE TO NORMAL. DAY NURSE GAVE AMLODIPINE AT 2001 GAVE A BP OF 171/90 LIKE THIS AFTERNOON RECHECKED AT 2029 BLOOD PRESSURE WAS 162/83 GAVE CARVEDILOL. RECHECKED BLOOD PRESSURE IS WAS 180/78. WILL CONTINUE TO MONITOR Q4 HOURS.
[2018-12-08 04:18] LABS: HEMATOCRIT 37.9 % (37.0-47.0); HEMOGLOBIN 12.1 gm/dL (12.0-15.0); MCH 27.2 pg (26.0-34.0); MCV 84.7 fL (80.0-100.0); RBC 4.47 mil/uL (4.20-5.00); RDW 14.7 % (10.5-14.5); WBC 4.4 thou/uL (4.0-11.0)
[2018-12-08 04:29] LABS: CALCIUM 9.5 mg/dL (8.5-10.1); CREATININE 1.2 mg/dL (0.6-1.0); POTASSIUM 3.2 mmol/L (3.5-5.1)
[2018-12-08 05:49] VITALS: BP 139/73
[2018-12-08 08:10] VITALS: BP 179/99
--- NOTE | 2018-12-08 08:34 | NUR ---
cm chart review. pt up in recliner chair. pt is a & o x 3, and able to make her needs know. education on dcp, transition of care, home health and team meetings. "i walked in here and will walk out, just weak, just with lower my levels it made me weaker. i have raised 6 kids that were family member kids. 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 live in house alone, 3 steps with hr to front door, 4 stairs and hr right side to rec room, and 5 stairs with hr to bedroom. have toilet and sink in bedroom. manage own medication guess to busy to get refilled. did not take them for awhile. have lunch program at work, so eat there. left overs for dinner, usually in microwave it is faster. my ex likes to help out sometimes to much. no home health in past. going to get better and go home"/dani. cm became tearfull during visit as she talked about helping other but forgetting her own health. active listing and support during visit. will cont following as needed for dc needs.
[2018-12-08 12:42] VITALS: BP 150/90
--- NOTE | 2018-12-08 16:33 | NUR ---
ASSUME PT CARE AT 0700. PT IS HERE FOR REHABILITATION ON L [facility] ACUTE INFARCT. PT ALERT AND ORIENTED X4, ABLE TO VOICE HER NEEDS. HAS SLURRED SPEECH. RIGHT FACIAL WEAKNESS, RIGHT ARM WEAK AND RIGHT LEG SIDE WEAKNESS. UP WITH MAX ASSIST WITH A WALKER. B/P WAS 179/99 HR 63. MORNING MEDS GIVEN. NOTIFIED SUKHDEV TO VERIFY ADMISSION MEDS. NEW ORDERS OBTAINED. RECHECK B/P AT 1200 B/P 150/90 HR 62. C/O NAUSEA GAVE PRN ZOFRAN AT LUNCH TIME. C/O FOOD IS SALTY. ONLY ATE 25% FOR LUNCH. REASSESSMENT PER CHART. LUNG SOUNDS CLEAR DIMINISHED. ABD BS HYPO ACTIVE. LAST BM WAS 3 DAYS AGO. ENCOURAGED PT TO TAKE LAXATIVE. GAVE PRN COLACE AND SENOKOT. OFFERED SUPPORTIVE CARE. ENCOURAGED PT TO VOICE HER NEEDS FOR PAIN, SLEEP AND N/V. DENIES PAIN. FALL PRECAUTION IN PLACE. CALL LIGHT WITHIN REACH. CHAIR ALARM IS ON. PT'S GOAL IS TO GET BETTER AND CAN BE INDEPENDENT AGAIN. PT HAS BEEN UP AND WORKING WITH THERAPIST. FEELS TIRED NOW. HAD VISITORS. CHECK FREQUENTLY FOR NEEDS AND SAFETY.
[2018-12-08 20:10] VITALS: BP 159/73
--- NOTE | 2018-12-09 04:04 | NUR ---
ASSUMED CARE OF PATIENT AROUND 1900. PATIENT IN CHAIR AT BEGINNING OF SHIFT, TECH ABLE TO HELP PATIENT CHANGE AND USE BATHROOM. PATIENT UPSET THAT RN DID NOT COME BACK TO ASSIST HER WITH CHANGING INTO GOWN. REASSURANCE GIVEN FROM TECH AND RN THAT STAFF IS HERE FOR HER SHE NEEDS, AND TO USE CALL LIGHT IF NEEDING SOMETHING BETWEEN ROUNDING. PATIENT AGREEABLE. PATIENT IS MAKING PROGRESS TOWARD GOALS WILL CONTINUE TO MONITOR.
[2018-12-09 08:46] VITALS: BP 163/76
--- NOTE | 2018-12-09 10:24 | NUR ---
ASSUMED CARE AT 0700. PATIENT IS ALERT AND ORIENTED X4. PATIENT HAS RIGHT L.E. ATAXIA. COMMUNITY ACTION WORKER ARE EQUAL. LUNGS ARE CLEAR AND DEMINISHED. ABD IS SOFT WITH BSX4. UP IN W/C FOR BREAKFAST. FALL AND SAFETY PROTOCOLS IN PLACE. DENIES ANY PAIN AT THIS TIME. CONTINUES TO PROGRESS SLOWLY TOWARDS D/C GOALS. WILL CONTINUE TO MONITER.
--- NOTE | 2018-12-10 02:21 | NUR ---
Assumed care of pt at 1900. Pt alert and oriented x4. Ambulates with 1x assist w/walker. Able to takes pills cut in half in pudding or apple sauce. Pt states she feels nauseous after eating. Had 1 episode of small emesis. Antiemetic administered. Pt states it helped with nausea. Able to take pills and keep them down. Fall precautions in place. Will continue to monitor and assist with needs.
[2018-12-10 06:25] VITALS: BP 162/72
[2018-12-10 08:50] VITALS: BP 154/87
--- NOTE | 2018-12-10 19:35 | NUR ---
ASSUMED CARE OF PT AT 0715. PT IS A&OX4 IS ON ROOM AIR. IS STABLE. DENIES PAIN. HAS RIGHT SIDED WEAKENESS & SLURRED SPEECH. PT IS UP WITH 1 ASSIT, GB, WALKER. FALL PRECAUTIONS & HOURLY ROUNDING MAINTAINED. THIS NURSE ASSISTED PT WITH SHOWER & ORAL CARES TODAY. PT COMPLETED 100% OF HER OWN SHOWER & 100% OF CARES. 95% DRESSING COMPLETED BY PT. LABS & VITALS REVIEWED. WILL CONTINUE TO MONITOR.
[2018-12-10 19:43] VITALS: BP 155/75
--- NOTE | 2018-12-10 23:47 | NUR ---
PT ASSESSMENT COMPLETED AND VSS. MEDS GIVEN ORDERED AND WELL TOLERATED. FALL PRECAUTIONS IN PLACE. PT DENIES PAIN/N. SOA WITH EXERTION. SLEEPING WELL. WILL CONTINUE TO MONITOR FREQUENTLY. SAT WNL ON RA.
[2018-12-11 06:55] LABS: ABSOLUTE NEUTROPHILS 2.9 thou/uL (1.4-8.2); BASOPHILS 0.8 % (0.0-2.0); EOSINOPHILS 2.5 % (0.0-3.0); HEMATOCRIT 36.8 % (37.0-47.0); HEMOGLOBIN 11.9 gm/dL (12.0-15.0); LYMPHOCYTES 40.6 % (24.0-44.0); MCH 27.4 pg (26.0-34.0); MCHC 32.4 g/dL (28.0-37.0); MCV 84.7 fL (80.0-100.0); MONOCYTES 7.5 % (1.0-8.0); PLATELET COUNT 233 thou/uL (150-400); POLYS 48.6 % (36.0-66.0); RBC 4.35 mil/uL (4.20-5.00); RDW 14.4 % (10.5-14.5); WBC 5.9 thou/uL (4.0-11.0)
[2018-12-11 07:01] LABS: CALCIUM 9.4 mg/dL (8.5-10.1); CREATININE 1.3 mg/dL (0.6-1.0); MAGNESIUM 1.8 mg/dL (1.8-2.4); POTASSIUM 3.9 mmol/L (3.5-5.1)
[2018-12-11 08:09] VITALS: BP 156/91
--- NOTE | 2018-12-11 09:21 | NUR ---
ASSUMED CARE OF PT AT 0715. REPORTS SLEPT GOOD. PT IS A&OX4 IS ON ROOM AIR. VSS ON RA. DENIES PAIN. HAS RIGHT SIDED WEAKENESS & SLURRED SPEECH.C/O NAUSEA. GAVE PRN ZOFRAN. REASSESSMENT PER CHART. BS HYPOACTIVE. NIGHT NURSE SAID PT HAS LITTLE LIQUID STOOL THIS AM. NOTIFIED SUKHDEV AND OBTAIN ORDER FOR MIRALAX SCHEUDLE. GAVE COLACE, SENNOKOT PRN AND WILL GIVE MIRALAX WITH WARM APPLE JUICE. WILL CONTINUE TO MONITOR BM TODAY. LAST BM WAS 6 DAYS AGO. PT IS UP WITH 1 ASSIT, SANCHO, WALKER. OT ASSISTED PT WITH SHOWER & ORAL CARES THIS AM. PT COMPLETED 100% OF HER OWN SHOWER & 100% OF CARES. 95% DRESSING COMPLETED BY PT. HAS POOR APPETITE D/T NAUSEA. ATE 20% THIS AM. OFFERED SUPPORTIVE CARE. ENCOURAGED PT TO VOICE HER NEEDS. DISCUSSED ABOUT GOALS AND PLANS WITH PT TODAY. HER GOALS ARE TO CONTINUE TO WORKING ON HER SPEECH. FALL PRECAUTION IN PLACE. CHECK FREQUENTLY FOR NEEDS AND SAFETY. BS 190, GAVE INSULIN ORDERED. WILL CONTINUE TO MONITOR.
[2018-12-11 19:29] VITALS: BP 174/103
--- NOTE | 2018-12-12 05:16 | NUR ---
ASSUMED CARE OF PT AT 1915. PT AMBULATED TO BATHROOM X3, BM'S PASSED EACH TIME. PT WAS INCONT OF LARGE AMOUNT OF LOOSE STOOL X1. PT BECAME UPSET ABOUT INCONTINENCE, STATING SHE "NEEDS TO HAVE A BRIEF ON AT NIGHT". AFTER BRIEF WAS PUT ON PT, SHE RELAXED AND FELL ASLEEP. SHE HAS APPERED TO BE SLEEPING THE REST OF THE NIGHT WHEN CHECKED ON HOURLY ROUNDS. PT IS REQUESTING TO TALK TO THE AUTOMOBILE RENTAL REPRESENTATIVE ABOUT OUR POLICY ABOUT REMOVING BRIEFS AT HS. FALL PRECAUTIONS IN PLACE.
[2018-12-12 06:35] VITALS: BP 168/90
[2018-12-12 08:10] VITALS: BP 177/93
--- NOTE | 2018-12-12 10:07 | NUR ---
FIM CLARIFICATION/CORRECTION LATE ENTRY: FIM RECORDED BY RN MM ON 12/07/18 AT 1999 SHOULD BE DISREGARDED THIS NURSE HAS NOT BEEN FIM CERTIFIED AND SCORES DO NOT ACCURATELY REFLECT PT PERFORMANCE.
--- NOTE | 2018-12-12 10:13 | NUR ---
ASSUMED CARE OF PT AT 0715. REPORTS DIDN'T SLEEP GOOD LAST NIGHT. HAD ONE EPISODE OF INCONT BM AND NEEDED TO CHANGED WHOLE BED. ASSISTED PT WITH WASHED UP THIS AM BEFORE TAKING SHOWER WITH OT. PT IS A&OX4 IS ON ROOM AIR. VSS ON RA. DENIES PAIN. HAS RIGHT SIDED WEAKENESS & SLURRED SPEECH. DENIES NAUSEA. REFUSED TO TAKE COLACE AND MIRALAX THIS AM. PT IS UP WITH 1 ASSIT, SANCHO WALKER. OFFERED SUPPORTIVE CARE. ENCOURAGED PT TO VOICE HER NEEDS. DISCUSSED ABOUT GOALS AND PLANS WITH PT TODAY. HER GOALS ARE TO CONTINUE TO WORKING ON HER SPEECH. ENCOURAGE PT TO EAT MORE. FALL PRECAUTION IN PLACE. CHECK FREQUENTLY FOR NEEDS AND SAFETY. BS MONITOR. INSULIN AND MORNING MEDS GIVEN ORDERED. WILL CONTINUE TO MONITOR.
--- NOTE | 2018-12-12 13:39 | NUR ---
team meeting, recommendation : aleksander 12/22/18, fww, home health, (pt, ot, st, nursing, and sw). assess who pcp is.
[2018-12-12 17:00] VITALS: BP 171/84
[2018-12-12 19:15] VITALS: BP 162/81
--- NOTE | 2018-12-13 03:29 | NUR ---
ASSUMED CARE OF PT AT 1915. PT UP IN CHAIR THROUGH THE EVENING, AMBULATES TO BATHROOM WITH STANDBY ASSIST USING GAIT BELT AND WALKER. ASSESSMENT COMPLETED. PO MEDS TAKEN WITHOUT DIFFICULTY. PT HAS APPEARED TO BE SLEEPING WHEN CHECKED ON HOURLY ROUNDS. FALL PRECAUTIONS IN PLACE.
[2018-12-13 07:51] VITALS: BP 184/98
--- NOTE | 2018-12-13 11:32 | NUR ---
ASSUMED CARE AT APPROX 0715. PATIENT A/O X4. DENIES PAIN. BP ELEVATED, SCHEDULED BP MEDS GIVEN, WILL REASSESS BP, PROVIDER NOTIFIED. REST OF VITALS STABLE. PT ATE <10% OF BREAKFAST, INSULIN HELD, PROVIDER NOTIFIED. UP X1 SBA GB AND WALKER. PARTICIPATING IN THERAPIES, VOICES THAT SHE WILL DO MUCH FOR HERSELF POSSIBLE. REPOSITIONS IN BED WITH CUES AND MINIMAL ASSISTANCE. LEGS ELEVATED WHEN AT REST. FALL PRECAUTIONS IN PLACE. WILL CONTINUE TO MONITOR.
--- NOTE | 2018-12-13 15:15 | NUR ---
Patient participated in community reintegration on 12/13/18 with Physical Therapy. Refer to documentation by PT.
--- NOTE | 2018-12-13 15:18 | NUR ---
FAXED REFERRAL FOR [facility] TO [facility] SPOKE WITH LYNN AT [facility] AND SHE RECEIVED REFERRAL AND WILL REVIEW. ANTICIPATE DC 12/22. DCP TO FOLLOW.
[2018-12-13 20:38] VITALS: BP 157/96
--- NOTE | 2018-12-14 01:56 | NUR ---
ASSUMED CARE OF PT AT 1915. PT ALERT AND ORIENTED X4. ASSESSMENT COMLETED. PT DENIES PAIN, DYPSNEA OR NAUSEA. AMBULATES TO BATHROOM WITH STANDBY ASSIST WITH GAIT BELT AND WALKER. PT SLEEPING IN RECLINER, STATES SHE IS MORE COMFORTABLE IN THE CHAIR. CHECKED ON HOURLY ROUNDS. CHAIR ALARM ON.
[2018-12-14 07:48] VITALS: BP 163/76
--- NOTE | 2018-12-14 20:22 | NUR ---
ASSUMED PT CARE AT 0700H. PT A&O X4. PT HAS NO S/S OF DISTRESS. PT ABLE TO PARTICIPATE WITH THERAPY. PT USES WALKER, PT USES MIN ASSIST. PT TOLERATES MED WITH THIN LIQUIDS. PT LOOKS FORWARD TO DO BETTER. PT CALL LIGHT WITHIN REACH. PT CONTINUES TO BE MONITORED FOR SAFETY.
[2018-12-14 20:47] VITALS: BP 154/70
--- NOTE | 2018-12-15 06:08 | NUR ---
UP TO BATHROOM WITH STANDBY ASSIST, ABLE TO CHANGE CLOTHES AND WASH HANDS INDEPENDENTLY. APPRECIATED YOGURT, RATHER THAN APPLESAUCE, WITH PILL THIS MORNING
[2018-12-15 08:30] VITALS: BP 177/91
--- NOTE | 2018-12-15 12:43 | H ---
[facility] [place] [address] HISTORY AND PHYSICAL Name: HARJEET HENSON Room #: 506-1 ADM IN M.R.#: [id number] Admission: 12/07/18 Attend Phys: Mauricio Guzman MD Discharge: Date of : 53 Report #: [id number] THIS REPORT FOR: //name// CC: Mauricio Guzman [facility] unknown DATE OF SERVICE: 12/07/2018 HISTORY OF PRESENT ILLNESS: This is a 63-year-old -[place] female who presented with lower extremity weakness and slurred speech. She was noted to have high blood pressure of 214/101. MRI scan revealed a left paramidline region at the caroline acute infarct. She was followed by Neurology. She was out of the window for TPA. Due to decline in functional mobility, she has been admitted to acute inpatient rehabilitation unit for physical, occupational and speech therapies. Today, the patient reports some mild dizziness and headache that was relieved with Tylenol. She denies shortness of air, cough or chest pain. She denies nausea or constipation. She denies urinary retention. She denies any leg swelling. She denies any specific arthritic or acute pains. 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 SOCIAL HISTORY: The patient lives in a house. Her niece is currently living with her. She has approximately 4-5 stairs to enter the home with handrails and then another 4-5 steps with handrails to the bedroom and bathroom level. She was independent with ADLs and IADLs. She was using no assistive device premorbidly. She denies fall history, premorbid. CODE STATUS: Full code. ALLERGIES: No known drug allergies. CURRENT MEDICATIONS: Colace p.r.n., senna p.r.n., bisacodyl p.r.n., milk of mag p.r.n., glipizide 15 mg with breakfast, Zofran p.r.n., Norvasc 5 mg daily, carvedilol 6.25 mg twice a day, lisinopril 20 mg daily, atorvastatin 40 mg at bedtime, metformin 1000 mg twice a day, aspirin 325 daily, Tylenol 650 q. 6 hours p.r.n., Lovenox 40 mg subQ at bedtime, hydrochlorothiazide 12.5 mg daily, sliding scale insulin a.c. and at bedtime, Pepcid 20 mg at bedtime, insulin 10 units subcutaneous a.c. REVIEW OF SYSTEMS: Remainder of her 14-point review of systems is negative except as listed in HPI. PHYSICAL EXAMINATION: VITAL SIGNS: Blood pressure 196/100, temperature 97.4, pulse 64, respirations 20, 98% on room air. [address] [address] HISTORY AND PHYSICAL Name: HARJEET HENSON Room #: 506-1 ADM IN M.R.#: [id number] Admission: 12/07/18 Attend Phys: Mauricio Guzman MD Discharge: Date of : 53 Report #: [id number] GENERAL: She is awake, alert. She is oriented x 3. She does seem to be slightly forgetful. HEENT: Head is normocephalic. She does have a right facial droop. Eyes: EOMs are grossly intact. ENT: No pharyngitis, no rhinorrhea. NECK: No lymphadenopathy. CARDIOVASCULAR: S1, S2. CHEST: Lungs are clear to auscultation bilaterally. No crackles, no wheeze. ABDOMEN: Bowel sounds are positive, soft, nontender, nondistended. GENITOURINARY: No CVA tenderness. PSYCHIATRIC: Pleasant affect. EXTREMITIES: She has functional range of motion of bilateral upper extremities. She does have some ataxic movements on the right upper extremity. Day Camp Counselor on the right upper decreased compared to the left. Able to lift bilateral lower extremities antigravity. Functional range of motion in bilateral lower extremities. Negative Homans sign. Ataxic movements on the right lower extremity and decreased motor initiation. She is transferring sit to stand with min assist. She is able to ambulate with mod assist 68 feet with a front-wheel walker. She is mod assist for grooming. NEUROLOGIC: Neuro assessment as noted above and some mild decrease in sensation on the right upper and lower extremities. LABORATORY DATA: From 12/04/2018, shows a hemoglobin A1c greater than 15.5. TSH 0.860. Sodium 142, potassium 3.3, BUN 20, creatinine 0.9. WBC 5.3, hemoglobin 11.7, hematocrit 36.5, platelets 208. ASSESSMENT: 1. Left paramidline pontine acute infarct. 2. Right upper and lower extremity ataxia and weakness. 3. Right facial droop and mild dysarthria. 4. Uncontrolled type 2 diabetes mellitus with hemoglobin A1c greater than 15.5. 5. Not controlled hypertension. 6. Hyperlipidemia. PLAN: The patient will be admitted to acute inpatient rehabilitation for physical, occupational and speech therapies. She is on a mechanical soft with thin liquid diet, but she does have swallow/aspiration precautions and will continue to work with speech therapy for swallowing. She will also have a speech therapy cognitive evaluation while on rehab unit. She will be seen by Neuropsychology: She will be followed by hospitalist services for medical management. She will have Neurology evaluations as needed. We will consult social work services for discharge planning needs. She will have a team conference next Tuesday. Please see extensive orders. ADDENDUM This is an addendum to a history and physical. Dictation done by Gia Nielsen. [facility] [place] [address] [place] [address] HISTORY AND PHYSICAL Name: HARJEET HENSON Room #: 506-1 ADM IN M.R.#: [id number] Admission: 12/07/18 Attend Phys: Mauricio Guzman MD Discharge: Date of : 53 Report #: [id number] Report no is [id number]. The patient was seen on 12/07/2018. HISTORY OF PRESENT ILLNESS: She has the left paramidline pontine acute infarct with right upper and right lower extremity ataxia and weakness. She needs to have her blood pressures monitored closely and is to be allowed permissive hypertension as previously discussed with Neurology. Agree with exam findings as noted above. She does have some ataxic movements of the right upper extremity and the right lower extremity with strength grade 4-/5. Some decreased initiation. Needs mod assist for short distance ambulation. Chest otherwise sounded clear. Cardiac exam regular rate and rhythm. Abdomen, bowel sounds are positive, nontender. FOR PAST MEDICAL HISTORY, SOCIAL HISTORY, CODE STATUS, ALLERGIES AND MEDICATIONS: Please see the above. No new complaints of weakness. No chest pain, shortness of breath or abdominal discomfort. ASSESSMENT: As noted above. She has the left paramidline pontine acute infarct, right upper and right lower extremity ataxia and weakness, right facial droop and mild dysarthria, uncontrolled type 2 diabetes mellitus with elevated hemoglobin A1c, uncontrolled hypertension, and hyperlipidemia. PLAN: The patient is admitted for acute in-hospital inpatient rehabilitation. Goal will be to maximize her functional independence, so she can hopefully improve to the point where she can return back to the home setting. I agree with history and physical as otherwise dictated. <ELECTRONICALLY SIGNED> By: WANDER Galo 12/15/18 1243 [id number] WANDER Galo /nt
--- NOTE | 2018-12-15 16:30 | NUR ---
ASSUMED CARE AT APPROX 0715. PATIENT A/O X4. REPORTS SLEPT WELL LAST NIGHT. HAD BM EARLIER THIS AM. REQUESTS TO [facility]ODI SANCHEZ THIS AM. DENIES PAIN. BP ELEVATED 177/91 SCHEDULED BP MEDS GIVEN, WILL REASSESS BP, PROVIDER NOTIFIED. REST OF VITALS STABLE. PT ATE 25% OF BREAKFAST, BS 176, GAVE 3 UNITS OF INSULIN. UP X1 SBA GB AND WALKER. PARTICIPATING IN THERAPIES, VOICES THAT SHE WILL DO MUCH FOR HERSELF POSSIBLE. REPOSITIONS IN BED WITH CUES AND MINIMAL ASSISTANCE. HAS TRACE EDEMA ON BOTH LEGS ELEVATED WHEN AT REST. BS 165, GAVE 3 UNITS OF INSULIN. ATE 100% LUNCH. DENIES PAIN, SOB, N/V. PT TOOK SHOWER WITH OT THIS AM. HER GOALS IS TO WORK WELL WITH THERAPISTS AND CAN BE M.I BEFORE DISCHARGE. OFFERED SUPPORTIVE CARE. ENCOURAGED PT TO VOICE HER NEEDS. CONTINUE TO MONITOR BS AND B/P GIVE MEDS AND INSULIN PER ORDRED. REASSESSMENT PER CHART. FALL PRECAUTIONS IN PLACE. WILL CONTINUE TO MONITOR.
[2018-12-15 17:00] VITALS: BP 170/83
[2018-12-15 19:50] VITALS: BP 165/92
--- NOTE | 2018-12-16 03:18 | NUR ---
PATIENT UP TO BATHROOM WITH STANDBY ASSIST, HAS STRONG DESIRE TO DO EVERYTHING INDEPENDENTLY. ENCOURAGED TO DRINK WITHOUT STRAWS.
[2018-12-16 07:35] VITALS: BP 174/77
--- NOTE | 2018-12-16 10:16 | NUR ---
ASSUMED CARE AT 0700. PATIENT IS ALERT AND ORIENTED X4. PATIENT HAS SOME RIGHT SIDED WEAKNESS. LUNGS ARE CLEAR. ABD IS SOFT WITH BSX4. UP IN CHAIR FOR BREAKFAST. FALL AND SAFETY PROTOCOLS IN PLACE. DENIES ANY PAIN AT THIS TIME. CONTINUES TO PROGRESS TOWARDS D/C GOALS. WILL CONINTUE TO MONITER.
[2018-12-16 16:11] VITALS: BP 157/81
[2018-12-16 19:45] VITALS: BP 186/95
--- NOTE | 2018-12-17 02:01 | NUR ---
UP TO BATHROOM WITH WALKER AND GAIT BELT SBA, UP AND DOWN FROM TOILET INDEPENDENTLY WITH STEADYING FROM GRAB BAR. HYDRALAZINE IN THE EVENING FOR SYSTOLIC BP GREATER THAN 180. PLEASANT
[2018-12-17 06:18] VITALS: BP 202/76
[2018-12-17 07:33] VITALS: BP 199/99
--- NOTE | 2018-12-17 14:44 | NUR ---
ASSUMED CARE AT APPROX 0715. PATIENT A/O X4. DENIES PAIN. UP X1 ASSIST GB AND WALKER. UP TO TOILET TO VOID. BLOOD GLUCOSE MONITORED. HIGH BP IMPROVED UPON RECHECK, SCHEDULED BP MEDS GIVEN. REFUSED GETTING UP TO CHAIR FOR MEALS, REFUSED WALK WITH NURSING, DID COMPLETE SHOWER WITH NURSE AID. FALL PRECAUTIONS IN PLACE. RESTING IN ROOM. WILL CONTINUE TO MONITOR.
[2018-12-17 19:15] VITALS: BP 180/86
--- NOTE | 2018-12-18 00:28 | NUR ---
PT ASSESSMENT COMPLETED AND VSS. MEDS GIVEN ORDERED AND WELL TOLERATED. FALL PRECAUTIONS IN PLACE. UP TO THE BATHROOM WITH ASST/GAIT/WALKER. STEADY. PRN NAUSEA MEDICATION WORKING WELL. SLEEPING WELL. WILL CONTINUE TO MONITOR FREQUENTLY.
[2018-12-18 06:35] VITALS: BP 174/80
[2018-12-18 06:46] LABS: ABSOLUTE NEUTROPHILS 2.7 thou/uL (1.4-8.2); BASOPHILS 0.7 % (0.0-2.0); EOSINOPHILS 3.5 % (0.0-3.0); HEMATOCRIT 35.9 % (37.0-47.0); HEMOGLOBIN 11.6 gm/dL (12.0-15.0); LYMPHOCYTES 37.2 % (24.0-44.0); MCHC 32.2 g/dL (28.0-37.0); MCV 83.9 fL (80.0-100.0); MONOCYTES 7.7 % (1.0-8.0); PLATELET COUNT 210 thou/uL (150-400); POLYS 50.9 % (36.0-66.0); RBC 4.28 mil/uL (4.20-5.00); RDW 14.4 % (10.5-14.5); WBC 5.3 thou/uL (4.0-11.0)
[2018-12-18 07:14] LABS: CALCIUM 9.2 mg/dL (8.5-10.1); CREATININE 0.9 mg/dL (0.6-1.0); MAGNESIUM 1.4 mg/dL (1.8-2.4); POTASSIUM 3.5 mmol/L (3.5-5.1)
[2018-12-18 08:00] VITALS: BP 165/97
--- NOTE | 2018-12-18 10:06 | NUR ---
ASSUMED CARE AT APPROX 0715. PATIENT A/O X4. DENIES PAIN. REPORTS SLEPT GOOD LAST NIGHT. C/O LEFT EYE IRRITATION LIKE SOEMTIME IN IT. IRRIGATED AND WARM CLOTHES APPLIED. NOTED PT HAS LITTLE RED PUMP INSIDE THE EYELID, LOOKS LIKE A STYLE. WILL NOTIFY SUKHDEV FOR FUTHER INSTRUCTION. UP X1 ASSIST GB AND WALKER. UP TO TOILET TO VOID. BLOOD GLUCOSE MONITORED. B/P 165/97, HR 64. PT HAD LOOSE STOOL THIS AM. HAS BEEN REFUSED SCHEDULE MIRALAX BID. WILL ASK ORDER TO CHANGE TO PRN. MORNING MEDS GIVEN. TAKES MED ONE AT THE TIME. OT ASSISTED, PT DID COMPLETE SHOWER WITH NURSE AID. FALL PRECAUTIONS IN PLACE. HER GOALS TO CONTINUE TO WORK TOWARD D/C GOALS.WILL CONTINUE TO MONITOR.
--- NOTE | 2018-12-18 11:48 | NUR ---
Nutrition: pt seen for LOS. Admit with CVA. Reports fluctuating weights and good appetite. BG 107-167. A1C 15.5. LDL 137, Chol 203. Pt reports she is familiar with diet/counting carbs and admits she had not been taking her DM meds consistently at home. Voices understanding of need for better DM control. Agrees to diet review prior to D/C on 12/22. RD will follow.
[2018-12-18 17:15] VITALS: BP 196/103
[2018-12-18 19:42] VITALS: BP 179/90
--- NOTE | 2018-12-19 00:07 | NUR ---
PT ASSESSMENT COMPLETED AND VSS. MEDS GIVEN ORDERED AND WELL TOLERATED. FALL PRECAUTIONS IN PLACE. UP TO THE BATHROOM WITH ASST/GAIT/WALKER. STEADY. VOIDING WELL. DENIES NEEDS. SLEEPING WELL. WILL CONTINUE TO MONITOR FREQUETLY.
[2018-12-19 06:20] VITALS: BP 175/70
--- NOTE | 2018-12-19 06:45 | HC ---
[facility] [place] [address] CONSULTATION Name: HARJEET HENSON Room #: 506-1 ADM IN M.R.#: [id number] Admission: 12/07/18 Attend Phys: Mauricio Guzman MD Discharge: Date of : 53 Report #: [id number] THIS REPORT FOR: //name// CC: Mauricio Guzman FAM unknown DATE OF SERVICE: 12/16/2018 AGE: 63. ATTENDING PHYSICIAN: Mauricio Guzman MD. MARKER ASSEMBLER: Mirza Sethi, PhD. CLINICAL PRESENTATION: The patient is a 63-year-old female admitted to the [facility] Rehabilitation Unit for comprehensive inpatient rehabilitation program to improve functional mobility, activities of daily living and self-care and mental status secondary to deficits from a left paramidline pontine acute infarction. Her assessment on admission also includes right upper and lower extremity ataxia and weakness, right facial droop with mild dysarthria, uncontrolled type 2 diabetes mellitus with hemoglobin A1c greater than 15.5, uncontrolled hypertension and hyperlipidemia. She reported working and living independently, but neglecting to refill and manage her medication. Patient was at work when a friend came to visit and noticed the ataxia and facial droop. She was unaware of the symptoms or that she had a stroke. Her friend transported her to the hospital. Prior to the stroke, she was living independently in her own home. She does have a niece that was living with her. The patient is one of nine siblings. She reports having very good social support. 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 She is a college graduate. There is no history of treatment for depression or anxiety or alcohol/drug abuse. TECHNIQUES UTILIZED: Clinical interview, review of medical records, staff consultation and behavioral observation, dementia rating scale - 2 and clock drawing. EXAMINATION FINDINGS: The patient was alert and cooperative with the assessment. There is no evidence of aphasia. She does not report auditory or visual hallucinations. Her thoughts are logical and goal oriented. However, the patient is talkative and was tangential during the interview. Good insight into recognition of her behavior regarding the poor management of her health care. She reports her symptoms to include anxiety primarily regarding her ability to [facility] [address] [place] [address] CONSULTATION Name: HARJEET HENSON Room #: 506-1 ADM IN .R.#: [id number] Admission: 12/07/18 Attend Phys: Mauricio Guzman MD Discharge: Date of : 53 Report #: [id number] return home and maintain independence. Mild difficulty with memory is reported, although she describes it as improving. She does not report depression, appetite or sleep disturbance. Concern about her niece is described. The niece reportedly has a mood disorder and can be quite verbally combative. Her performance on the DRS-2 is in the moderate range of impairment with an overall scaled MOANS corrected scale score of 4, which is at the second percentile. Her attention was within normal limits with AM score of 10. Constructive ability was satisfactory; however, poor quality likely result of upper extremity ataxia is noted. Deficits were mild in conceptual ability and toward the moderate range in memory. Variability in abstract conceptual ability and memory along with subtle difficulty in initiation/perseveration suggest vascular neurocognitive disorder affecting higher level reasoning planning and judgment. DIAGNOSTIC IMPRESSION: Vascular mild neurocognitive disorder, without behavior disorder ([id number] cognitive dysfunction is suggested). Adjustment Disorder with Anxious Mood RECOMMENDATIONS: The patient will likely require assistance in the management of medication and nutrition in order to maintain safety upon her return home. Driving should be discontinued pending a more thorough evaluation. An outpatient neuropsychological assessment in approximately 3 months is indicated to help clarify the severity of her deficits and provide additional recommendations for environmental support and management. Cognitive therapy to assistance with compensatory strategies for deficits in executive functioning including planning and problem solving and memory. Assistance with discharge planning will also help lessen anxiety. Thank you very much for allowing me to provide the consultation on this patient. <ELECTRONICALLY SIGNED> By: Mirza Sethi, PhD 12/19/18 0645 [id number] Mirza Sethi, PhD /nt
--- NOTE | 2018-12-19 13:13 | NUR ---
team meeting, recommendation: no driving follow up with pcp, home health ( pt, ot, st, nursing, sw). pt spoke with dani on getting shower chair.dc 15th, still need hh [employer] will cont following as needed for dc needs. ffw from [facility] prior to dc home
--- NOTE | 2018-12-19 14:30 | NUR ---
ASSUMED CARE AT APPROX 0715. REPORTS SLEPT FINE LAST NIGHT. LEFT EYE IS BETTER, CONTINUE ADMINISTER EYE DROP ORDERED. PATIENT A/O X4. DENIES PAIN. C/O NAUSEA BEFORE LUNCH, REFUSED NEEDS FOR ZOFRAN. BS HYPOACTIVE. C/O CONSTIPATION. LAST BM WAS 2 DAYS AGO, NOT ON SCHEDULE MED OR LAXATIVE AT THIS MOMENT. GIVE PRN MIRALAX WITH PRUNE JUICE. WILL CONTINUE TO MONITOR BM. UP X1 ASSIST GB AND WALKER. UP TO TOILET TO VOID. BLOOD GLUCOSE MONITORED. HIGH BP IMPROVED UPON RECHECK, SCHEDULED BP MEDS GIVEN. OFFERED SUPPORTIVE CARE. CONTINUE TO WORK WITH THERAPISTS TOWARD D/C GOALS. FALL PRECAUTIONS IN PLACE. USES CALL LIGHT APPROPRIATELY. WILL CONTINUE TO MONITOR.
--- NOTE | 2018-12-19 15:48 | H ---
[facility] [place] [address] HISTORY AND PHYSICAL Name: HARJEET HENSON Room #: 506-1 ADM IN M.R.#: [id number] Admission: 12/07/18 Attend Phys: Mauricio Guzman MD Discharge: Date of : 53 Report #: [id number] THIS REPORT FOR: //name// CC: Mauricio Guzman [facility] unknown DATE OF SERVICE: 12/07/2018 POSTADMISSION PHYSICIAN EVALUATION HISTORY OF PRESENT ILLNESS: The patient is a 63-year-old -[place] female who was seen by me in consultation and has been diagnosed with a left pontine acute infarct with right upper and lower extremity ataxia, weakness, right facial droop and has hypertension with an MRI suggesting angiopathy needing permissive blood pressure as per Neurology. Gait noted to be quite ataxic. She has had a significant decline in her functional independence and is admitted for acute in-hospital inpatient rehabilitation. PAST MEDICAL HISTORY, SOCIAL HISTORY, CODE STATUS, ALLERGIES: See the dictated history and physical. MEDICATIONS: Please see the full medication listing. This includes vitamins, herbals, and supplements. REVIEW OF SYSTEMS: No current complaints of chest pain, shortness of breath or abdominal discomfort. PHYSICAL EXAMINATION: GENERAL: A 63-year-old -[place]iber[place] female in no obvious distress. VITAL SIGNS: Last recorded temperature 98.3, pulse 59, respirations 18, blood pressure 139/73. HEENT: Appeared to be benign. Head normocephalic. EOMs full. No obvious neglect to confrontation. NEUROLOGIC: She is alert, oriented, somewhat forgetful. CHEST: Sounded clear to auscultation. CARDIOVASCULAR: Regular rate and rhythm. ABDOMEN: Bowel sounds positive, nontender. GENITOURINARY AND RECTAL: Deferred. She does have some slurring of her speech. EXTREMITIES: Functional range of motion of the upper extremities with some ataxic movements of the right upper extremity and some decreased strength with fine finger dexterity probably a grade 4-/5. Branch Assistant was decreased compared to the left. Functional range of motion of both lower extremities with some ataxic movements of the right lower extremity and decreased motor initiation. Transfers are min assist and she has been mod assist for short distance walker ambulation. Some mild decreased sensation in right upper and right lower extremity to simultaneous stimulation. [address] [address] HISTORY AND PHYSICAL Name: HARJEET HENSON Room #: 506-1 ADM IN M.R.#: [id number] Admission: 12/07/18 Attend Phys: Mauricio Guzman MD Discharge: Date of : 53 Report #: [id number] ASSESSMENT: 1. Left paramidline pontine acute infarct. 2. Right upper and lower extremity ataxia and weakness. 3. Right facial droop and mild dysarthria. 4. Uncontrolled type 2 diabetes mellitus with noted hemoglobin A1c greater than 15.5. 5. History of uncontrolled hypertension. 6. Hyperlipidemia. PLAN: The patient is admitted for acute in-hospital inpatient rehabilitation. From a postadmission physician evaluation perspective, there are no relevant changes since the preadmission screening. Please see the above review of prior and current medical and functional conditions and comorbidities. Please see the patient's previous and current functional status. As far as risk of complication, she does have the multiple medical comorbidities as noted above. She is to be allowed some permissive hypertension as noted per Neurology. The hospitalist service is involved from an Internal Medicine perspective to monitor her medical care while she is on the rehab luciano. The initial plan of care involves the interdisciplinary acute inpatient rehabilitation program with goal of maximizing her functional independence, so she can hopefully return back to her prior living situation. Measurable functional goals would be for the patient to become modified independent with transfers, mobility, ADLs, cognition, communication, so that she can return back to the home setting. Prognosis is reasonably good with estimated length of stay probably at least 10 days to 2 weeks and likely longer as needed. Potential barriers would include her multiple medical comorbidities and decreased functional status. <ELECTRONICALLY SIGNED> By: Mauricio Guzman MD 12/19/18 1548 [id number] Mauricio Guzman MD /[facility]
--- NOTE | 2018-12-19 15:48 | PLAN ---
[facility] [place] [address] REHAB UNIT PLAN OF CARE Name: HARJEET HENSON Room #: 506-1 ADM IN M.R.#: [id number] Admission: 12/07/18 Attend Phys: Mauricio Guzman MD Discharge: Date of : 53 Report #: [id number] THIS REPORT FOR: //name// CC: Mauricio Guzman [facility] unknown DATE OF SERVICE: 12/09/2018 The patient was seen earlier, was in no distress. Last recorded temperature 36.7, pulse 63, respirations 17, and blood pressure 163/76. She has been working with therapies. Lower body dressing is mod assist, upper body is supervision, toilet transfers are min assist. She is min assist to transfers, gait 250 feet, min assist with a front-wheeled walker. She has decreased balance. Is on a modified diet with mechanical soft solids, thin liquids, no straws. ASSESSMENT: 1. Left paramidline pontine acute infarct. 2. Right upper and lower extremity ataxia and weakness. 3. Right facial droop and mild dysarthria. 4. Uncontrolled type 2 diabetes mellitus with noted hemoglobin A1c greater than 15.5. 5. History of uncontrolled hypertension. 6. Hyperlipidemia. PLAN: The overall plan of care is based on the preadmission screen, post-admission physician evaluation and information garnered from therapy assessments. 1. Estimated length of stay is probably at least 10 days to 2 weeks and likely longer as warranted. 2. Medical prognosis is reasonably good. 3. Anticipated interventions include the interdisciplinary acute inpatient rehabilitation program with PT, OT, speech rehab nursing assisting regarding medication management, skin care prophylaxis, bowel and bladder issues and nursing education. Case management is involved as well as the category consultant physicians. 4. Anticipated functional outcomes would be for the patient to become modified independent with transfers, mobility, ADLs and to improve as far as cognition as well as swallowing and communication, so she can return back to the home setting. 5. Discharge destination would be back to the home setting. She lives in a house with her niece currently living with her. 6. Expected therapy by discipline includes PT, OT and speech 1 hour per day each five days a week throughout the duration of the acute inpatient stay. <ELECTRONICALLY SIGNED> By: Mauricio Guzman MD 12/19/18 1548 [id number] Mauricio Guzman MD /nt
[2018-12-19 19:39] VITALS: BP 179/98
--- NOTE | 2018-12-20 04:31 | NUR ---
ASSESSMENT: PT REMAIN ALERT AND ORIENT TIMES FOUR. UP TO BR WITH SBA. DENIES PAIN. PT NON-COMPLIANT WITH BP MEDS, BP MONITORED. DENIES SOB AND N/V. DID HAVE ONE MEDIUM, LOOSE BM THIS SHIFT. POSSIBLE DC ON TUESDAY. PT WITH SLOW PROGRESS TOWARDS DC GOALS. WILL CONTINUE TO MONITOR.
[2018-12-20 08:45] VITALS: BP 192/77
--- NOTE | 2018-12-20 11:51 | NUR ---
ASSUMED CARE OF PT AT 0715. PT IS A&OX4, HAS SOME SLURRED SPEECH. IS ON ROOM AIR. IS STABLE. IS UP WITH 1 ASSIST, GB, WALKER. HAS SOME RIGHT SIDED WEAKNESS. FALL PRECAUTIONS & HOURLY ROUNDING CONTINUED THIS SHIFT. DENIES PAIN. LABS & VITALS REVIEWED. PT WILL MOVE TO ROOM 501 THIS EVENING AFTER CURRENT OCCUPANT DISCHARGES & ROOM IS CLEANED. PT IS CURRENTLY IN ROOM, UP IN CHAIR WATCHING TV. CALL LIGHT WITHIN REACH. WILL CONTINUE TO MONITOR.
--- NOTE | 2018-12-20 12:02 | NUR ---
FAXED REFERRAL TO [facility] SPOKE WITH NELIDA IN ADM. AND HE RECEIVED REFERRAL AND THEY CAN ACCEPT PT. AT DC. DCP TO FOLLOW.
[2018-12-20 12:47] VITALS: BP 162/81
[2018-12-20 17:26] VITALS: BP 191/94
[2018-12-20 19:10] VITALS: BP 166/86
--- NOTE | 2018-12-21 02:32 | NUR ---
ASSUMED CARE AT START OF SHIFT PT PT UP WITH WALKER GAIT STEADY , DNEIS PAIN DISCUSSED PLAN OF CARE AND AGREEABLE , ABLE TO MOVE AROUND APT LIKE SETTING WITHOUT DIFFICUTY.RESTED WELL THROUGHOUT HOURLY ROUNDS
[2018-12-21] MEDS ORDERED: ATORVASTATIN CA40 MG PO (09:14)
[2018-12-21] MEDS ORDERED: LISINOPRIL10 MG PO (09:14)
[2018-12-21] MEDS ORDERED: HYDRALAZINE 10M10 MG PO (09:14)
[2018-12-21] MEDS ORDERED: COREG6.25 MG PO (09:14)
[2018-12-21] MEDS ORDERED: PEPCID20 MG PO (09:14)
[2018-12-21 09:29] VITALS: BP 176/72
--- NOTE | 2018-12-21 09:40 | NUR ---
cm visited with pt while she working with pt, she ready to dc home today rt possibility of bad weather tomorrow. dc home with [facility] home health ( pt, ot, st, and nursing). recommendation not to drive. will need to following with pcp.
[2018-12-21 11:25] VITALS: BP 176/72
--- NOTE | 2018-12-21 12:45 | NUR ---
ASSUMED CARES AT 1100. PT IN THE CHAIR, AWAKE, ALERT AND ORIENTED *4. CONTINUES TO HAVE RIGHT SIDED WEAKNESS BUT HAS FULL ROM OF BOTH UPPER AND LOWER EXTREMITY. PT IS MODIFIED INDEPENDENT IN ROOM. PT DISCHARGING TO HOME WITH HOMEHEALTH THIS AFTERNOON. DISCHARGE TEACHING COMPLETED WITH PATIENT AND SHE VERBALISED UNDERSTANDING. Q1H VISUAL CHECKS. CALL LIGHT WITHIN REACH
--- NOTE | 2018-12-21 13:58 | NUR ---
PT. DISCHARGING TODAY TO HOME WITH [facility]. SPOKE WITH NELIDA IN ADM. AND HE RECEIVED DC ORDERS AND WILL NOTIFY PT. OF TIME OF VISITS.
== END 2018-12-21 14:11 | disposition home health service (06) | DRG 65 ==
LOC: ENTRNSPT 12-21 13:58
PROVIDERS: Nurse Practitioner; Nurse Practitioner Family; ADMIT Physical Medicine & Rehabilitation
DX: I63.9 Cerebral infarction, unspecified (principal); N17.9 Acute kidney failure, unspecified; I50.42 Chronic combined systolic (congestive) and diastolic (congestive) heart failure; E11.65 Type 2 diabetes mellitus with hyperglycemia; R27.0 Ataxia, unspecified; E78.5 Hyperlipidemia, unspecified; R53.1 Weakness; R29.810 Facial weakness; R53.81 Other malaise; E87.6 Hypokalemia; I11.0 Hypertensive heart disease with heart failure; K59.00 Constipation, unspecified; M79.652 Pain in left thigh; R47.1 Dysarthria and anarthria; F01.50 Vascular dementia, unspecified severity, without behavioral disturbance, psychotic disturbance, mood disturbance, and anxiety; F43.22 Adjustment disorder with anxiety; H54.50 Low vision, one eye, unspecified eye; Z98.891 History of uterine scar from previous surgery; Z79.4 Long term (current) use of insulin; Z79.82 Long term (current) use of aspirin; Z79.899 Other long term (current) drug therapy
CPT/HCPCS: 10112